=== PATIENT | female | born 1995 | race American Indian/Alaskan Native ===

== ENCOUNTER 2017-01-11 | Inpatient (IN) | payer OTHER, MEDICAID ==
[2017-01-11] MEDS ORDERED: Lactated Ringers 500 ML IV ONE (00:22)
[2017-01-11] MEDS ORDERED: Lidocaine 1% 30 ML SDV INJECT PRN (00:22)
[2017-01-11] MEDS ORDERED: Misoprostol 400 MCG (4 X 100 MCG TAB) RECTAL PRN (00:22)
[2017-01-11] MEDS ORDERED: Carboprost Tromethamine 250 MCG/1 ML Amp IM PRN (00:22)
[2017-01-11] MEDS ORDERED: Sodium Chloride 0.9% 10 ML Syringe FLUSH PRN (00:22)
[2017-01-11] MEDS ORDERED: Ondansetron 4 MG/2 ML SDV IV PRN (00:22)
[2017-01-11] MEDS ORDERED: Misoprostol 25 MCG (1/4 of 100 MCG) Tab VAG PRN (00:22)
[2017-01-11] MEDS ORDERED: fentaNYL 100 MCG/2 ML SDV IVPUSH PRN (00:22)
[2017-01-11] MEDS ORDERED: Nalbuphine 10 MG/1 ML Vial IVPUSH PRN (00:22)
[2017-01-11] MEDS ORDERED: Methylergonovine 0.2 MG/1 ML Amp IM PRN (00:22)
[2017-01-11] MEDS ORDERED: Oxytocin/Normal Saline 30 UNIT/500 ML BAG IV SCH (00:30)
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
[2017-01-11] MEDS: Lactated Ringers 1,000 ML IV SCH ×3 (00:57→09:35)
[2017-01-11] MEDS ORDERED: Penicillin G Potassium 5 MILLUNITS in Sodium Chloride 0.9% 100 ML IV ONE (01:00)
[2017-01-11] MEDS ORDERED: fentaNYL 100 MCG/2 ML SDV ONE (06:41)
[2017-01-11] MEDS ORDERED: ePHEDrine 50 MG/ML SDV ONE (07:08)
--- NOTE | 2017-01-11 07:17 | PCM.SN ---
- Free Text/Narrative Note: Called to provide labor pain relief via intrathecal to this patient. After chart reviewed, consent signed, and monitors on, proceeded. With patient in sitting position, sterile prep/drape. Skin wheal at L3-4 with 1% lidocaine, LP X 1 at L3-4 with 25g pencan spinal needle. Positive clear, free flowing CSF. No heme, no paresthesia. Then 6mg mpf hyperbaric spinal 0.75% marcaine, 20mcg sufenta, 30mcg fentanyl, 0.4ml preservative free normal saline plus epi wash given intrathecal. Pt to supine after and block reported to be at around T10. FHT's and Maternal SBP dropped slightly and transiently (see strip) after around 10minutes, so patient placed in KILO, O2 given to mother, and ephedrine 10mg iv given. FHT's immediately improved as did maternal SBP. Pt reported pain relief with subsequent contractions.
[2017-01-11] MEDS: Penicillin G Potassium 3 MILLUNITS in Sodium Chloride 0.9% 100 ML IV SCH (09:39)
[2017-01-11] MEDS ORDERED: Simethicone 80 MG Tab.Chew PO PRN (10:01)
[2017-01-11] MEDS ORDERED: Ketorolac 30 MG/ML SDV IVPUSH PRN (10:03)
[2017-01-11] MEDS: Docusate Sodium 100 MG Cap PO PRN (13:36)
[2017-01-11] MEDS: Ibuprofen 800 MG Tab PO PRN ×2 (13:36→23:45)
[2017-01-11] MEDS ORDERED: Benzocaine/Menthol 20%-0.5% Spray 56 GM Canister TOP PRN (13:41)
--- NOTE | 2017-01-11 14:54 | PCM.DEL ---
L & D Note - General Info Date of Service: 01/11/17 Mother's Due Date: 01/03/17 - Delivery Note Labor: Augmented by ARM Cervical Ripening Method: Misoprostil Delivery Outcome: Livebirth Delivery Method: Spontaneous Vaginal Delivery Infant Delivery Mode: Vacuum Extraction Presentation: Left Occiput Anterior (ANN) Nuchal Cord: Present, Reduced Anesthesia Type: Intrathecal Amniotic Fluid Description: Meconium Stained Episiotomy Type: None Laceration: 2nd Degree, Perineal Suture type: Vicryl Suture size: 3-0 Placenta: Intact, Spontaneous, Meconium Stained Cord: 3 Vessels Estimated Blood Loss: 200 [place]: Suctioned, Bulb Syringe, Stimulated, Warmed, Niotaze Used, Warmer Used Provider: Jackie Menendez Score 1 min: 7 Score 5 min: 9 Delivery Comments (Free Text/Narrative):: 21-year-old, now , presented to L&D at 41w1d gestation for IOL for postdates. Patient received 1 dose of Cytotec. After receiving this dose, she transitioned into active labor and did not need any further augmentation. Patient progressed to 4 cm x 6 a.m. She received her intrathecal injection around 7 AM and rapidly progressed to complete dilation at 8 AM. AROM was performed for meconium-stained fluid. After AROM, heart tones were noted to be in the 70s and 80s only increasing to the 90s in between contractions. Therefore, the decision was made to proceed with vacuum delivery. The risks and benefits were discussed with the patient, and she agreed to proceed. Vacuum was placed on the head ensuring a maternal tissue was cleared from the suction cup. Patient pushed well for 3 contractions with good movement of the head noted. On the third contraction, the head was delivered. The vacuum was removed. Baby delivered through a moderately loose nuchal cord. Cord was clamped 2 and cut. Baby was taken to the warmer. Baby was noted to be a viable male infant with Apgars of 7 and 9 at one and 5 minutes respectively. Cord blood was obtained. A few minutes later, the placenta delivered spontaneously and intact. Pitocin was initiated, and uterus was noted to be firm. A second- degree perineal laceration was noted and was repaired in the usual fashion. Uterus was noted to still be firm. Blood loss determined to be 200 mL. Patient tolerated the procedure well, and there were no immediate complications. Total vacuum time was less than 12 minutes. Jackie Menendez MD Induction Criteria - Pappas Score Pappas Score Dilation: 1-2 cm Pappas Score Effacement: 60-70% Pappas Score Infant's Station: -1 ,0 Pappas Score Consistency: Soft Pappas Score Cervix Position: Midposition Pappas Score Total: 8 Pappas Score Presenting Part: Reports: Cephalic - Induction Gestational Age >/= 39 wks: Yes Medical Indication: Post dates Estimated Pelvis: Reports: Adequate Reassuring Monitoring Strip: Yes Absence of Tachy Systole: Yes - Augmentation Estimated Pelvis: Reports: Adequate Weight Estimated:: Reports: AGA Reassuring Monitoring Strip: Yes Vacuum Extractor Progress Note - Alternative Labor Strategies Considered Alternative Labor Strategies Considered:: Reports: Yes Strategies Considered:: Reports: Contraction Intensity Adequate Indications Considered:: Reports: Yes Indications:: Reports: Suspicion of Immediate or Potential Compromise Time Out:: Reports: No - Patient Prepared Patient Prepared:: Reports: Yes Informed Consent:: Reports: Verbal Risks: Reports: Yes Risks Include:: Reports: Laceration, Shoulder Dystocia, Maternal Injury Anesthesia/Analgesia Adequate:: Reports: Yes - Probability of Success High Probability of Success:: Reports: Yes Weight Estimated:: Reports: AGA Patient Diabetic:: Reports: No Pelvis Adequate:: Reports: Yes Station:: 3+ - Application Time Maximum Application Time & Number of Pop-Offs Predetermined:: Reports: Yes (3) Total Application Time (min): *max=20min: 11 Type of Vacuum Used:: Reports: Cup: Mushroom type Vacuum Extraction: Successful - Exit Strategy Exit strategy available:: Reports: Yes and resuscitation teams readily available:: Reports: Yes - Patient Data Vitals - Most Recent: Last Vital Signs Temp 36.1 C 01/11/17 07:36 Pulse 86 01/11/17 10:00 Resp 16 01/11/17 10:00 BP 127/62 01/11/17 10:00 Pulse Ox 99 01/11/17 07:53 Weight - Most Recent: 85.275 kg I&O - Last 24 Hours: Intake & Output 01/10/17 01/11/17 01/11/17 22:59 06:59 14:59 Intake Total 1380 Output Total 1500 Balance -120 Lab Results Last 24 Hours: Laboratory Results - last 24 hr 01/10/17 01/11/17 Range/Units 00:18 00:05 WBC 11.6 H (5.0-10.0) 10^3/uL RBC 4.21 (4.2-5.4) 10^6/uL Hgb 12.1 (12.0-16.0) g/dL Hct 37.0 (37.0-47.0) % MCV 87.9 (80-100) fL MCH 28.7 (27.0-34.0) pg MCHC 32.7 L (33.0-35.0) g/dL Plt Count 196 (150-450) 10^3/uL Urine Opiates Screen Negative (NEGATIVE) Ur Oxycodone Screen Negative (NEGATIVE) Urine Methadone Screen Negative (NEGATIVE) Ur Barbiturates Screen Negative (NEGATIVE) U Tricyclic Antidepress Negative (NEGATIVE) Ur Phencyclidine Scrn Negative (NEGATIVE) Ur Amphetamine Screen Negative (NEGATIVE) U Methamphetamines Scrn Negative (NEGATIVE) Urine MDMA Screen Negative (NEGATIVE) U Benzodiazepines Scrn Negative (NEGATIVE) Urine Cocaine Screen Negative (NEGATIVE) U Marijuana (THC) Screen Negative (NEGATIVE) Med Orders - Current: Current Medications Acetaminophen (Tylenol) 650 mg PO Q4H PRN PRN Reason: Pain (Mild 1-3) and fever Benzocaine/Menthol (Dermoplast Pain Relief [place]) 1 gm TOP ASDIRECTED PRN PRN Reason: Pain Carboprost Tromethamine (Hemabate Ds) 250 mcg IM ASDIRECTED PRN PRN Reason: HEMORRHAGE Docusate Sodium (Colace) 100 mg PO BID PRN PRN Reason: Constipation Last Admin: 01/11/17 13:36 Dose: 100 mg Oxytocin/Sodium Chloride (Pitocin In Ns 30 Unit/500 Ml) 30 unit in 500 mls @ 2 mls/hr IV TITRATE NAYELI; 2 MUNITS/MIN PRN Reason: Protocol Last Titration: 01/11/17 10:30 Dose: 0 mls/hr Ibuprofen (Motrin) 800 mg PO Q8H PRN PRN Reason: Mild Pain or Fever Last Admin: 01/11/17 13:36 Dose: 800 mg Ketorolac Tromethamine (Toradol) 30 mg IVPUSH Q6H PRN PRN Reason: Pain Stop: 01/12/17 10:03 Methylergonovine Maleate (Methergine) 0.2 mg IM ASDIRECTED PRN PRN Reason: Hemorrhage Misoprostol (Cytotec) 800 mcg RECTAL ASDIRECTED PRN PRN Reason: Hemorrhage Misoprostol (Cytotec) 25 mcg VAG Q4H PRN PRN Reason: cervical ripening Last Admin: 01/11/17 00:54 Dose: 25 mcg Ondansetron HCl (Zofran) 4 mg IV Q4H PRN PRN Reason: Nausea/Vomiting Last Admin: 01/11/17 03:50 Dose: 4 mg Simethicone (Simethicone) 80 mg PO Q4H PRN PRN Reason: Gas Sodium Chloride (Saline Flush) 10 ml FLUSH ASDIRECTED PRN PRN Reason: Keep Vein Open Discontinued Medications Ephedrine Sulfate (Ephedrine Sulfate) Confirm Administered Dose 50 mg .ROUTE .STK-MED ONE Stop: 01/11/17 07:09 Last Admin: 01/11/17 09:38 Dose: Not Given Fentanyl (Sublimaze) 50 mcg IVPUSH Q1H PRN PRN Reason: Pain (moderate 4-6) Last Admin: 01/11/17 03:57 Dose: 50 mcg Fentanyl (Sublimaze) Confirm Administered Dose 100 mcg .ROUTE .STK-MED ONE Stop: 01/11/17 06:42 Last Admin: 01/11/17 09:39 Dose: Not Given Lactated Ringer's (Ringers, Lactated) 500 mls @ 999 mls/hr IV .BOLUS ONE Stop: 01/11/17 00:52 Last Admin: 01/11/17 09:39 Dose: Not Given Lactated Ringer's (Ringers, Lactated) 1,000 mls @ 125 mls/hr IV ASDIRECTED [facility] Last Admin: 01/11/17 09:35 Dose: 125 mls/hr Penicillin G Potassium 5 (millunits/ Sodium Chloride) 100 mls @ 200 mls/hr IV ONETIME ONE Stop: 01/11/17 01:29 Last Infusion: 01/11/17 05:39 Dose: Infused Penicillin G Potassium 3 (millunits/ Sodium Chloride) 100 mls @ 200 mls/hr IV Q4H [facility] Last Admin: 01/11/17 09:39 Dose: Not Given Lidocaine HCl (Xylocaine-Mpf 1%) 10 ml INJECT ASDIRECTED PRN PRN Reason: Perineal Repair Nalbuphine HCl (Nubain) 10 mg IVPUSH Q3H PRN PRN Reason: Pain (moderate 4-6) Stop: 01/12/17 00:23 Sufentanil Citrate (Sufenta) Confirm Administered Dose 50 mcg .ROUTE .STK-MED ONE Stop: 01/11/17 06:42 Last Admin: 01/11/17 09:38 Dose: Not Given - Problem List & Annotations (1) care in third trimester SNOMED Code(s): 141213884, 21971729, 77087775, 727381606, 812198263 Code(s): Z34.93 - ENCNTR FOR SUPRVSN OF NORMAL PREG, UNSP, THIRD TRIMESTER Status: Acute Current Visit: Yes (2) Drug use affecting SNOMED Code(s): 33566938, 147352582 Code(s): O99.320 - DRUG USE COMPLICATING , UNSPECIFIED TRIMESTER Status: Acute Current Visit: Yes (3) Positive GBS test SNOMED Code(s): 9630537750839, 4908246617021 Code(s): B95.1 - STREPTOCOCCUS, GROUP B, CAUSING DISEASES CLASSD [facility] Status: Acute Current Visit: Yes (4) Status post vacuum-assisted vaginal delivery SNOMED Code(s): 774372636, 55778033003458877 Code(s): Z87.42 - PERSONAL HISTORY OF OTH DISEASES OF THE FEMALE GENITAL TRACT Status: Acute Current Visit: Yes (5) Perineal laceration during delivery, delivered SNOMED Code(s): 447682763 Code(s): O70.9 - PERINEAL LACERATION DURING DELIVERY, UNSPECIFIED Status: Acute Current Visit: Yes - Problem List Review Problem List Initiated/Reviewed/Updated: Yes - My Orders Last 24 Hours: My Active Orders 01/11/17 00:22 Patient Status [ADT] Routine Vital Signs [RC] PER UNIT ROUTINE Acetaminophen [Tylenol] 650 mg PO Q4H PRN Carboprost Tromethamine [Hemabate DS] 250 mcg IM ASDIRECTED PRN Methylergonovine [Methergine] 0.2 mg IM ASDIRECTED PRN Misoprostol [Cytotec] 25 mcg VAG Q4H PRN Misoprostol [Cytotec] 800 mcg RECTAL ASDIRECTED PRN Ondansetron [Zofran] 4 mg IV Q4H PRN Sodium Chloride 0.9% [Saline Flush] 10 ml FLUSH ASDIRECTED PRN Peripheral IV Insertion Adult [OM.PC] Urgent Saline Lock Insert [OM.PC] Routine Resuscitation Status Routine 01/11/17 00:30 Oxytocin/Normal Saline [Pitocin in NS 30 UNIT/500 ML] 30 unit in 500 ml IV TITRATE 01/11/17 10:01 Notify Provider Vital Signs OB [RC] ASDIRECTED Up ad Lety [RC] ASDIRECTED Vital Signs [RC] PFP Consult to Snuff Box Finisher [CONS] Routine Docusate Sodium [Colace] 100 mg PO BID PRN Ibuprofen [Motrin] 800 mg PO Q8H PRN Simethicone 80 mg PO Q4H PRN Assess Lochia [WOMSER] Per Unit Routine Assess Uterine Involution [WOMSER] Per Unit Routine Breast Pump [WOMSER] Per Unit Routine Ice Therapy [OM.PC] Per Unit Routine Perineal Care [OM.PC] Per Unit Routine Sitz Bath [OM.PC] Per Unit Routine 01/11/17 10:03 Ketorolac [Toradol] 30 mg IVPUSH Q6H PRN 01/11/17 13:41 Benzocaine/Menthol [Dermoplast Pain Relief [place]] 1 gm TOP ASDIRECTED PRN 01/11/17 Lunch Regular Diet [DIET] - Assessment Assessment:: 21-year-old, now , status post vacuum assisted vaginal delivery for distress at 41w1d - Plan Plan:: 1. Initiate routine care 2. IV/IM Toradol prescribed for 24 hours if needed for pain due to vacuum delivery 3. Plan to breastfeed. consultation placed. 4. Anticipate discharge 01/13/17 Jackie Menendez MD
[2017-01-11] MEDS ORDERED: fentaNYL 100 MCG/2 ML SDV ITHECAL ONE (16:35)
[2017-01-11] MEDS ORDERED: Albuterol 6.7 GM Inhaler INH PRN (17:24)
[2017-01-11] MEDS: Acetaminophen 325 MG Tab PO PRN (18:33)
[2017-01-12] MEDS: Docusate Sodium 100 MG Cap PO PRN ×2 (08:44→21:15)
[2017-01-12] MEDS: Acetaminophen 325 MG Tab PO PRN ×3 (08:44→21:15)
[2017-01-12] MEDS: Ibuprofen 800 MG Tab PO PRN ×2 (08:46→16:08)
--- NOTE | 2017-01-12 08:57 | PCM.PNPP ---
- General Info Date of Service: 01/12/17 Subjective Update: Patient is day #1 status post vacuum-assisted vaginal delivery. She is doing well. She does have some perineal discomfort that does improve with ice , Tylenol, and ibuprofen. She is tolerating a general diet. She is voiding without difficulty and has passed gas. No bowel movement at this time. She is ambulating without dizziness or lightheadedness. She is breast-feeding, and this is going well. No concerns per patient or per nursing. Functional Status: Reports: Pain Controlled, Tolerating Diet, Ambulating, Urinating. Denies: New Symptoms - Review of Systems General: Reports: No Symptoms HEENT: Reports: No Symptoms Pulmonary: Reports: No Symptoms Cardiovascular: Reports: No Symptoms Gastrointestinal: Reports: No Symptoms Genitourinary: Reports: No Symptoms Musculoskeletal: Reports: No Symptoms Skin: Reports: No Symptoms - General Info Date of Service: 01/12/17 - Patient Data Vital Signs - Most Recent: Last Vital Signs Temp 36.6 C 01/11/17 20:52 Pulse 83 01/11/17 20:52 Resp 18 01/11/17 20:52 BP 122/80 01/11/17 20:52 Pulse Ox 98 01/11/17 20:52 Weight - Most Recent: 85.275 kg Med Orders - Current: Current Medications Acetaminophen (Tylenol) 650 mg PO Q4H PRN PRN Reason: Pain (Mild 1-3) and fever Last Admin: 01/11/17 18:33 Dose: 650 mg Albuterol (Proventil Hfa) 1 - 2 gm INH Q6H PRN PRN Reason: Shortness of Breath Last Admin: 01/11/17 18:35 Dose: 1 dose Benzocaine/Menthol (Dermoplast Pain Relief [place]) 0 gm TOP ASDIRECTED PRN PRN Reason: Pain Last Admin: 01/11/17 17:30 Dose: 1 sprays Carboprost Tromethamine (Hemabate Ds) 250 mcg IM ASDIRECTED PRN PRN Reason: HEMORRHAGE Docusate Sodium (Colace) 100 mg PO BID PRN PRN Reason: Constipation Last Admin: 01/11/17 13:36 Dose: 100 mg Oxytocin/Sodium Chloride (Pitocin In Ns 30 Unit/500 Ml) 30 unit in 500 mls @ 2 mls/hr IV TITRATE NAYELI; 2 MUNITS/MIN PRN Reason: Protocol Last Titration: 01/11/17 10:30 Dose: 0 mls/hr Ibuprofen (Motrin) 800 mg PO Q8H PRN PRN Reason: Mild Pain or Fever Last Admin: 01/11/17 23:45 Dose: 800 mg Ketorolac Tromethamine (Toradol) 30 mg IVPUSH Q6H PRN PRN Reason: Pain Stop: 01/12/17 10:03 Methylergonovine Maleate (Methergine) 0.2 mg IM ASDIRECTED PRN PRN Reason: Hemorrhage Misoprostol (Cytotec) 800 mcg RECTAL ASDIRECTED PRN PRN Reason: Hemorrhage Misoprostol (Cytotec) 25 mcg VAG Q4H PRN PRN Reason: cervical ripening Last Admin: 01/11/17 00:54 Dose: 25 mcg Ondansetron HCl (Zofran) 4 mg IV Q4H PRN PRN Reason: Nausea/Vomiting Last Admin: 01/11/17 03:50 Dose: 4 mg Simethicone (Simethicone) 80 mg PO Q4H PRN PRN Reason: Gas Sodium Chloride (Saline Flush) 10 ml FLUSH ASDIRECTED PRN PRN Reason: Keep Vein Open Discontinued Medications Ephedrine Sulfate (Ephedrine Sulfate) Confirm Administered Dose 50 mg .ROUTE .STK-MED ONE Stop: 01/11/17 07:09 Last Admin: 01/11/17 09:38 Dose: Not Given Fentanyl (Sublimaze) 50 mcg IVPUSH Q1H PRN PRN Reason: Pain (moderate 4-6) Last Admin: 01/11/17 03:57 Dose: 50 mcg Fentanyl (Sublimaze) Confirm Administered Dose 100 mcg .ROUTE .STK-MED ONE Stop: 01/11/17 06:42 Last Admin: 01/11/17 09:39 Dose: Not Given Fentanyl (Sublimaze) 30 mcg ITHECAL .STK-MED ONE Stop: 01/11/17 16:36 Lactated Ringer's (Ringers, Lactated) 500 mls @ 999 mls/hr IV .BOLUS ONE Stop: 01/11/17 00:52 Last Admin: 01/11/17 09:39 Dose: Not Given Lactated Ringer's (Ringers, Lactated) 1,000 mls @ 125 mls/hr IV ASDIRECTED NAYELI Last Admin: 01/11/17 09:35 Dose: 125 mls/hr Penicillin G Potassium 5 (millunits/ Sodium Chloride) 100 mls @ 200 mls/hr IV ONETIME ONE Stop: 01/11/17 01:29 Last Infusion: 01/11/17 05:39 Dose: Infused Penicillin G Potassium 3 (millunits/ Sodium Chloride) 100 mls @ 200 mls/hr IV Q4H [facility] Last Admin: 01/11/17 09:39 Dose: Not Given Lidocaine HCl (Xylocaine-Mpf 1%) 10 ml INJECT ASDIRECTED PRN PRN Reason: Perineal Repair Nalbuphine HCl (Nubain) 10 mg IVPUSH Q3H PRN PRN Reason: Pain (moderate 4-6) Stop: 01/12/17 00:23 Sufentanil Citrate (Sufenta) Confirm Administered Dose 50 mcg .ROUTE .STK-MED ONE Stop: 01/11/17 06:42 Last Admin: 01/11/17 09:38 Dose: Not Given Sufentanil Citrate (Sufenta) 20 mcg ITHECAL .STK-MED ONE Stop: 01/11/17 16:36 - Interaction Disposition, : [place] to Nursery Infant Feeding: Breastfed ; Nursed Well Support Person: Significant Other - Recovery Exam Fundal Tone: Firm Fundal Level: 1 Fingerbreadths Below Umbilicus Fundal Placement: Midline Lochia Amount: Moderate Lochia Color: Rubra/Red Perineum Description: Intact, Minimal Bruising/Swelling Episiotomy/Laceration: None Bladder Status: Voiding Urinary Elimination: Voided - Exam General: Alert, Oriented HEENT: Mucous Membr. Moist/[place] Lungs: Clear to Auscultation, Normal Respiratory Effort Cardiovascular: Regular Rate, Regular Rhythm. No: Murmurs Extremities: No Pedal Edema Skin: Warm, Dry, Intact - Problem List & Annotations (1) care in third trimester SNOMED Code(s): 743984429, 64807065, 15815882, 105722821, 739825379 Code(s): Z34.93 - ENCNTR FOR SUPRVSN OF NORMAL PREG, UNSP, THIRD TRIMESTER Status: Acute Current Visit: Yes (2) Drug use affecting SNOMED Code(s): 16529145, 616998361 Code(s): O99.320 - DRUG USE COMPLICATING , UNSPECIFIED TRIMESTER Status: Acute Current Visit: Yes (3) Positive GBS test SNOMED Code(s): 4253621263443, 2736546953392 Code(s): B95.1 - STREPTOCOCCUS, GROUP B, CAUSING DISEASES CLASSD [facility] Status: Acute Current Visit: Yes (4) Status post vacuum-assisted vaginal delivery SNOMED Code(s): 942074771, 28877955983193238 Code(s): Z87.42 - PERSONAL HISTORY OF OTH DISEASES OF THE FEMALE GENITAL TRACT Status: Acute Current Visit: Yes (5) Perineal laceration during delivery, delivered SNOMED Code(s): 206960936 Code(s): O70.9 - PERINEAL LACERATION DURING DELIVERY, UNSPECIFIED Status: Acute Current Visit: Yes - Problem List Review Problem List Initiated/Reviewed/Updated: Yes - My Orders Last 24 Hours: My Active Orders 01/11/17 10:01 Notify Provider Vital Signs OB [RC] ASDIRECTED Up ad Lety [RC] ASDIRECTED Vital Signs [RC] 08, Consult to Supervisor Electron Tube Processing [CONS] Routine Docusate Sodium [Colace] 100 mg PO BID PRN Ibuprofen [Motrin] 800 mg PO Q8H PRN Simethicone 80 mg PO Q4H PRN Assess Lochia [WOMSER] Per Unit Routine Assess Uterine Involution [WOMSER] Per Unit Routine Breast Pump [WOMSER] Per Unit Routine Ice Therapy [OM.PC] Per Unit Routine Perineal Care [OM.PC] Per Unit Routine Sitz Bath [OM.PC] Per Unit Routine 01/11/17 10:03 Ketorolac [Toradol] 30 mg IVPUSH Q6H PRN 01/11/17 13:41 Benzocaine/Menthol [Dermoplast Pain Relief [place]] 0 gm TOP ASDIRECTED PRN 01/11/17 17:24 Albuterol [Proventil HFA] 1 - 2 gm INH Q6H PRN 01/11/17 Lunch Regular Diet [DIET] - Assessment Assessment:: 21-year-old, now , day #1 status post vacuum assisted vaginal delivery for distress at 41w1d after induction for post dates - Plan Plan:: 1. Continue routine care 2. Continue oral Tylenol and ibuprofen for pain control 3. Breast-feeding well. consultation placed. 4. Anticipate discharge 01/13/17 Jackie Menendez MD
--- NOTE | 2017-01-12 10:41 | PCM.POSTAN ---
POST ANESTHESIA ASSESSMENT - MENTAL STATUS Mental Status: Alert - VITAL SIGNS Pulse Rate: 83 SaO2: 98 Resp Rate: 18 Blood Pressure: 122/80 Temperature: 36.6 C - RESPIRATORY Respiratory Status: Respiratory Rate WNL - CARDIOVASCULAR CV Status: Pulse Rate WNL - GASTROINTESTINAL GI Status: No Symptoms - POST OP HYDRATION Hydration Status: Adequate & Stable - OBSERVATIONS Free Text/Narrative:: Pt without c/o. No PDPH, no PONV, very mild discomfort at injection site at L3- 4, not requiring meds, no paresthesias. No post anesthesia complications.
[2017-01-12] MEDS: Prenatal Multivitamin with Calcium/Folic Acid/Iron Tab PO SCH (16:08)
[2017-01-13] MEDS: Ibuprofen 800 MG Tab PO PRN ×2 (00:38→08:17)
[2017-01-13] MEDS: Docusate Sodium 100 MG Cap PO PRN (08:17)
[2017-01-13] MEDS: Prenatal Multivitamin with Calcium/Folic Acid/Iron Tab PO SCH (08:17)
[2017-01-13 08:39] VITALS: BP 118/65
--- NOTE | 2017-01-13 11:00 | PCM.DCSUM1 ---
Discharge Summary - Hospital Course Free Text/Narrative:: Vacuum-assisted vaginal delivery for distress at 41w1d on 01/11/2017 - Discharge Data Discharge Date: 01/13/17 Discharge Disposition: Home, Self-Care 01 Condition: Good - Discharge Diagnosis/Problem(s) (1) care in third trimester SNOMED Code(s): 842493570, 15057303, 59215924, 861673881, 358912533 ICD Code: Z34.93 - ENCNTR FOR SUPRVSN OF NORMAL PREG, UNSP, THIRD TRIMESTER Status: Acute Current Visit: Yes (2) Drug use affecting SNOMED Code(s): 18219825, 578912242 ICD Code: O99.320 - DRUG USE COMPLICATING , UNSPECIFIED TRIMESTER Status: Acute Current Visit: Yes (3) Positive GBS test SNOMED Code(s): 0993351675327, 1808327581006 ICD Code: B95.1 - STREPTOCOCCUS, GROUP B, CAUSING DISEASES CLASSD [facility] Status: Acute Current Visit: Yes (4) Status post vacuum-assisted vaginal delivery SNOMED Code(s): 262511716, 58373591558271572 ICD Code: Z87.42 - PERSONAL HISTORY OF OTH DISEASES OF THE FEMALE GENITAL TRACT Status: Acute Current Visit: Yes (5) Perineal laceration during delivery, delivered SNOMED Code(s): 421018855 ICD Code: O70.9 - PERINEAL LACERATION DURING DELIVERY, UNSPECIFIED Status: Acute Current Visit: Yes - Patient Summary/Data Operative Procedure(s) Performed: Vacuum-assisted vaginal delivery Complications: None Consults: Consultations 01/11/17 10:01 Consult to Retail Office Manager [CONS] Routine Labs Pending at D/C: None Recommended Follow-up Testing/Procedures: None Planned Operative Procedure(s) after DC: None Hospital Course: Unremarkable. (Please see subjective section) - Discharge Plan Home Medications: Home Meds Ferrous Sulfate [Iron] 1 tab PO DAILY 12/15/16 [History] Vit #108/Iron/FA [ One Tablet] 1 tab PO DAILY 12/15/16 [History ] Albuterol [IJD: Ventolin HFA] 1 puff INH .TWICE DAILY 01/01/17 [History] Acetaminophen [Tylenol] 650 mg PO Q4H PRN tablet MDD 4000 mg 01/13/17 [Rx] Docusate Sodium [Colace] 100 mg PO BID PRN cap 01/13/17 [Rx] Ibuprofen [IJD: Ibuprofen] 800 mg PO Q8H PRN tablet 01/13/17 [Rx] Patient Handouts: Home Care Instructions for Mom, Care of a Perineal Tear, Care After Vaginal Delivery Referrals: Jackie Menendez MD [Primary Care Provider] - - Discharge Summary/Plan Comment DC Time >30 min.: No Discharge Summary/Plan Comment: Discharge home today. Patient will follow-up with me in 6-8 weeks for routine exam. Reasons to return sooner were discussed with the patient, and she voiced her understanding. All questions were answered. Jackie Menendez MD - General Info Date of Service: 01/13/17 Subjective Update: Patient is day #2 status post vacuum-assisted vaginal delivery. She is doing well. She is tolerating a general diet. She is voiding without difficulty and has passed gas. No bowel movement at this time. She is ambulating without dizziness or lightheadedness. She has decided to bottle feed. No concerns per patient or per nursing. Functional Status: Reports: Pain Controlled, Tolerating Diet, Ambulating, Urinating. Denies: New Symptoms - Review of Systems General: Reports: No Symptoms HEENT: Reports: No Symptoms Pulmonary: Reports: No Symptoms Cardiovascular: Reports: No Symptoms Gastrointestinal: Reports: No Symptoms Genitourinary: Reports: No Symptoms Musculoskeletal: Reports: No Symptoms - Patient Data Vitals - Most Recent: Last Vital Signs Temp 36.8 C 01/13/17 08:39 Pulse 78 01/13/17 08:39 Resp 16 01/13/17 08:39 BP 118/65 01/13/17 08:39 Pulse Ox 99 01/13/17 08:39 Weight - Most Recent: 85.275 kg Med Orders - Current: Current Medications Acetaminophen (Tylenol) 650 mg PO Q4H PRN PRN Reason: Pain (Mild 1-3) and fever Last Admin: 01/12/17 21:15 Dose: 650 mg Albuterol (Proventil Hfa) 1 - 2 gm INH Q6H PRN PRN Reason: Shortness of Breath Last Admin: 01/11/17 18:35 Dose: 1 dose Benzocaine/Menthol (Dermoplast Pain Relief [place]) 0 gm TOP ASDIRECTED PRN PRN Reason: Pain Last Admin: 01/11/17 17:30 Dose: 1 sprays Carboprost Tromethamine (Hemabate Ds) 250 mcg IM ASDIRECTED PRN PRN Reason: HEMORRHAGE Docusate Sodium (Colace) 100 mg PO BID PRN PRN Reason: Constipation Last Admin: 01/13/17 08:17 Dose: 100 mg Oxytocin/Sodium Chloride (Pitocin In Ns 30 Unit/500 Ml) 30 unit in 500 mls @ 2 mls/hr IV TITRATE NAYELI; 2 MUNITS/MIN PRN Reason: Protocol Last Titration: 01/11/17 10:30 Dose: 0 mls/hr Ibuprofen (Motrin) 800 mg PO Q8H PRN PRN Reason: Mild Pain or Fever Last Admin: 01/13/17 08:17 Dose: 800 mg Methylergonovine Maleate (Methergine) 0.2 mg IM ASDIRECTED PRN PRN Reason: Hemorrhage Misoprostol (Cytotec) 800 mcg RECTAL ASDIRECTED PRN PRN Reason: Hemorrhage Misoprostol (Cytotec) 25 mcg VAG Q4H PRN PRN Reason: cervical ripening Last Admin: 01/11/17 00:54 Dose: 25 mcg Ondansetron HCl (Zofran) 4 mg IV Q4H PRN PRN Reason: Nausea/Vomiting Last Admin: 01/11/17 03:50 Dose: 4 mg Prenat Multivit/[place]/Iron/Folic Ac ( Plus Iron) 1 each PO WITHBREAKFAST NAYELI Last Admin: 01/13/17 08:17 Dose: 1 each Simethicone (Simethicone) 80 mg PO Q4H PRN PRN Reason: Gas Sodium Chloride (Saline Flush) 10 ml FLUSH ASDIRECTED PRN PRN Reason: Keep Vein Open Discontinued Medications Ephedrine Sulfate (Ephedrine Sulfate) Confirm Administered Dose 50 mg .ROUTE .STK-MED ONE Stop: 01/11/17 07:09 Last Admin: 01/11/17 09:38 Dose: Not Given Fentanyl (Sublimaze) 50 mcg IVPUSH Q1H PRN PRN Reason: Pain (moderate 4-6) Last Admin: 01/11/17 03:57 Dose: 50 mcg Fentanyl (Sublimaze) Confirm Administered Dose 100 mcg .ROUTE .STK-MED ONE Stop: 01/11/17 06:42 Last Admin: 01/11/17 09:39 Dose: Not Given Fentanyl (Sublimaze) 30 mcg ITHECAL .STK-MED ONE Stop: 01/11/17 16:36 Lactated Ringer's (Ringers, Lactated) 500 mls @ 999 mls/hr IV .BOLUS ONE Stop: 01/11/17 00:52 Last Admin: 01/11/17 09:39 Dose: Not Given Lactated Ringer's (Ringers, Lactated) 1,000 mls @ 125 mls/hr IV ASDIRECTED NAYELI Last Admin: 01/11/17 09:35 Dose: 125 mls/hr Penicillin G Potassium 5 (millunits/ Sodium Chloride) 100 mls @ 200 mls/hr IV ONETIME ONE Stop: 01/11/17 01:29 Last Infusion: 01/11/17 05:39 Dose: Infused Penicillin G Potassium 3 (millunits/ Sodium Chloride) 100 mls @ 200 mls/hr IV Q4H [facility] Last Admin: 01/11/17 09:39 Dose: Not Given Ketorolac Tromethamine (Toradol) 30 mg IVPUSH Q6H PRN PRN Reason: Pain Stop: 01/12/17 10:03 Lidocaine HCl (Xylocaine-Mpf 1%) 10 ml INJECT ASDIRECTED PRN PRN Reason: Perineal Repair Nalbuphine HCl (Nubain) 10 mg IVPUSH Q3H PRN PRN Reason: Pain (moderate 4-6) Stop: 01/12/17 00:23 Sufentanil Citrate (Sufenta) Confirm Administered Dose 50 mcg .ROUTE .STK-MED ONE Stop: 01/11/17 06:42 Last Admin: 01/11/17 09:38 Dose: Not Given Sufentanil Citrate (Sufenta) 20 mcg ITHECAL .STK-MED ONE Stop: 01/11/17 16:36 - Exam General: Reports: Alert, Oriented Lungs: Reports: Clear to Auscultation, Normal Respiratory Effort Cardiovascular: Reports: Regular Rate, Regular Rhythm, No Murmurs Extremities: Normal Inspection, No Pedal Edema Skin: Reports: Warm, Dry, Intact *Q Meaningful Use (DIS) - VTE *Q VTE Criteria *Q: - Stroke *Q Stroke Criteria *Q: - AMI *Q AMI Criteria *Q:
== END 2017-01-13 13:45 | disposition home or self-care (01) | DRG 775 ==
LOC: DL.OB → OBSVTOIN 08:04
PROVIDERS: ADMIT Family Medicine; ATTEND Family Medicine
PROC: 10D07Z6 Extraction of Products of Conception, Vacuum, Via Natural or Artificial Opening (ICD-10-PCS; principal; 2017-01-11)
PROC: 0KQM0ZZ Repair Perineum Muscle, Open Approach (ICD-10-PCS; 2017-01-11)
PROC: 3E033VJ Introduction of Other Hormone into Peripheral Vein, Percutaneous Approach (ICD-10-PCS; 2017-01-11)
PROC: 4A1HXFZ Monitoring of Products of Conception, Cardiac Rhythm, External Approach (ICD-10-PCS; 2017-01-11)
PROC: 3E0R3BZ Introduction of Anesthetic Agent into Spinal Canal, Percutaneous Approach (ICD-10-PCS; 2017-01-11)
PROC: 00HU33Z Insertion of Infusion Device into Spinal Canal, Percutaneous Approach (ICD-10-PCS; 2017-01-11)
PROC: 3E0R3CZ (ICD-10-PCS; 2017-01-11)
DX: O48.0 Post-term pregnancy (principal); O99.324 Drug use complicating childbirth; Z37.0 Single live birth; Z3A.41 41 weeks gestation of pregnancy; O77.0 Labor and delivery complicated by meconium in amniotic fluid; O70.1 Second degree perineal laceration during delivery; O99.824 Streptococcus B carrier state complicating childbirth; O76 Abnormality in fetal heart rate and rhythm complicating labor and delivery; Z91.011 Allergy to milk products; O99.52 Diseases of the respiratory system complicating childbirth; J45.909 Unspecified asthma, uncomplicated; O99.02 Anemia complicating childbirth; Z87.891 Personal history of nicotine dependence; F12.90 Cannabis use, unspecified, uncomplicated
CPT/HCPCS: 36415; 80305; 85027; A9270-GY; J2405; J2540; J2590; J3010; J7050; J7120

== ENCOUNTER 2017-06-23 19:29 | Emergency (ER) | payer OTHER, MEDICAID ==
[2017-06-23 22:04] VITALS: BP 106/58
[2017-06-23] MEDS ORDERED: Clindamycin HCl 150 MG Cap PO ONE (22:04)
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
== END 2017-06-23 22:20 | disposition home or self-care (01) ==
LOC: DL.ED 19:29
DX: L08.9 Local infection of the skin and subcutaneous tissue, unspecified (principal); L53.9 Erythematous condition, unspecified; J45.909 Unspecified asthma, uncomplicated; Z79.899 Other long term (current) drug therapy; Z91.011 Allergy to milk products; Z87.891 Personal history of nicotine dependence
CPT/HCPCS: 99283; A9270

== ENCOUNTER 2017-07-12 20:55 | Emergency (ER) | payer OTHER, MEDICAID ==
[2017-07-12] MEDS ORDERED: Ondansetron 4 MG Tab.DIS PO ONE (20:56)
[2017-07-12] MEDS ORDERED: Sodium Chloride 0.9% 1,000 ML IV ONE (21:19)
[2017-07-12] MEDS ORDERED: Metoclopramide 10 MG/2 ML SDV IVPUSH ONE (21:34)
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
[2017-07-12 21:53] LABS: CHLORIDE,CL 104 mmol/L (101-111); SODIUM,NA 137 mmol/L (135-145)
[2017-07-12] MEDS ORDERED: Ondansetron 4 MG Tab.DIS ONE (22:35)
[2017-07-12 22:40] VITALS: BP 126/68
== END 2017-07-12 22:45 | disposition home or self-care (01) ==
LOC: DL.ED 20:55
DX: K52.9 Noninfective gastroenteritis and colitis, unspecified (principal); F17.210 Nicotine dependence, cigarettes, uncomplicated; Z91.011 Allergy to milk products; Z79.899 Other long term (current) drug therapy
CPT/HCPCS: 36415; 80053; 83605; 84703; 85025; 96361; 96374; 99284; A9270-GY; J2765; J7030

== ENCOUNTER 2017-10-24 06:40 | Emergency (ER) | payer MEDICAID, OTHER ==
[2017-10-24 06:44] VITALS: BP 127/77
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
[2017-10-24] MEDS ORDERED: Ondansetron 4 MG/2 ML SDV IV ONE (07:06)
[2017-10-24] MEDS ORDERED: Iopamidol 612 MG/ML 75 ML Bottle IVPUSH ONE (07:23)
[2017-10-24 07:37] LABS: CHLORIDE,CL 100 mmol/L (101-111); SODIUM,NA 135 mmol/L (135-145)
--- NOTE | 2017-10-24 08:59 | CT ---
Clinical history: 21-year-old 140 pound female smoker with lower abdominal pain. No known surgeries. WBC 14,000. Etiology? Scan technique: Volume acquisition of data from the abdomen and pelvis obtained without oral but duri ng IV infusion 75 cc nonionic Isovue contrast (3 cc/s via injector) while the patient was lying supin e on the Siemens multi slice scanner [place], [place]. All data archiv ed in the PACS system for storage, reformatting axial/sagittal/coronal planes and study. Interpretation: 1. Gallbladder, liver, stomach, spleen, pancreas and adrenal glands unremarkable. 2. Normal reniform size axis and configuration bilaterally. No sign of cortical mass lesion, nephroli thiasis or obstructive uropathy. 3. Normal-appearing appendix suggested in all 3 planes, immediately adjacent to the terminal ileum an d cecum, right lower quadrant. Medications (density) in the adjacent small bowel. No appendicoliths. No abscess RLQ. No free intraperitoneal air. Normal uterus. 4. Solitary 1.5 cm diameter cyst right ovary and trace of fluid in the dependent cul-de-sac on the ri ght (recent cyst rupture?). 5. No pelvic or abdominal mass lesion; no sign of mesenteric or retroperitoneal lymphadenopathy; no m echanical bowel obstruction. 6. Normal abdominal aorta. Lumbar spine unremarkable. Lung bases clear. Normal cardiac silhouette. CONCLUSION: Possible ovarian cyst rupture. Emergency CT scan abdomen and pelvis otherwise unremarkabl e. Normal appendix.
[2017-10-24] MEDS ORDERED: Magnesium Citrate Solution 296 ML Bottle PO ONE (10:37)
== END 2017-10-24 10:59 ==
LOC: DL.ED 06:40
DX: K59.00 Constipation, unspecified (principal); J45.909 Unspecified asthma, uncomplicated; F17.210 Nicotine dependence, cigarettes, uncomplicated; Z91.048 Other nonmedicinal substance allergy status; Z79.899 Other long term (current) drug therapy
CPT/HCPCS: 36415; 74177; 80053; 80305; 81001; 81025; 82150; 83605; 83690; 85025; 87040; 99285; A9270; J2405; Q9967

== ENCOUNTER 2019-06-24 14:43 | Emergency (ER) | payer OTHER ==
[2019-06-24 15:07] VITALS: BP 121/79; PULSE 84
== END 2019-06-24 18:00 | disposition left against medical advice (07) ==
LOC: DL.ED 14:43
DX: Z53.21 Procedure and treatment not carried out due to patient leaving prior to being seen by health care provider (principal)

== ENCOUNTER 2021-11-05 17:00 | Emergency (ER) | payer OTHER, MEDICAID ==
[2021-11-05 17:35] VITALS: BP 117/76; PULSE 90
== END 2021-11-05 19:28 | disposition home or self-care (01) ==
LOC: DL.ED 17:00
DX: S06.0X0A Concussion without loss of consciousness, initial encounter (principal); S01.81XA Laceration without foreign body of other part of head, initial encounter; S60.211A Contusion of right wrist, initial encounter; Z91.011 Allergy to milk products; V49.40XA Driver injured in collision with unspecified motor vehicles in traffic accident, initial encounter; Y92.410 Unspecified street and highway as the place of occurrence of the external cause
CPT/HCPCS: 12013; 70450; 72125; 73110-RT; 99283; 99284-25